=== PATIENT | female | born 1960 | race Caucasian/White ===

== ENCOUNTER 2019-08-18 09:43 | Emergency (ER) | payer BC, MEDICAID ==
[~2019-08-18] VITALS: Ht 170.2 cm; Wt 100.0 kg
[2019-08-18 09:48] VITALS: BP 119/83
[2019-08-18] MEDS ORDERED: DIPH1TAB24 PO (09:54)
[2019-08-18] MEDS ORDERED: AMIT10TA6 PO (09:54)
[2019-08-18] MEDS ORDERED: ACETAMINOPHEN WITH CODEINE 300/30MG TABLET PO ONE (10:45)
== END 2019-08-18 10:55 | disposition home or self-care (01) ==
LOC: ER 09:43
DX: M25.512 Pain in left shoulder (principal)
CPT/HCPCS: 99283; A4565